=== PATIENT | male | born 1990 | race Caucasian/White ===

== ENCOUNTER 2017-09-19 17:41 | Emergency (ER) | payer SELFPAY ==
--- NOTE | 2017-09-19 19:00 | RAD REPORT ---
EXAM DESCRIPTION: RAD - Ankle Left 3 View - 09/19/2017 6:54 pm CLINICAL HISTORY: Pain and swelling. COMPARISON: None. FINDINGS: Moderate soft tissue swelling is seen along the medial malleolus. No acute fracture or dis location is suspected. IMPRESSION: Moderate medial soft tissue swelling.
--- NOTE | 2017-09-19 19:11 | ER ---
Nurse's Notes [facility] Name: Harley Romero Age: 27 yrs Sex: Male : 1990 Arrival Date: 09/19/2017 Time: 17:43 Bed 18 Private MD: Diagnosis: Contusion of left ankle Presentation: 09/19 17:45 Presenting complaint: Patient states: Left ankle was crushed between pipe and wall aj yesterday morning. Patient is able to ambulate. Transition of care: patient was not received from another setting of care. Onset of symptoms was September 18, 2017. Initial Sepsis Screen: Does the patient meet any 2 criteria? No. Patient's initial sepsis screen is negative. Does the patient have a suspected source of infection? No. Patient's initial sepsis screen is negative. Care prior to arrival: None. 17:45 Method Of Arrival: Ambulatory 17:45 Acuity: SEN 4 Triage Assessment: 17:46 General: Appears in no apparent distress. comfortable, Behavior is calm, cooperative, aj appropriate for age. Pain: Complains of pain in left medial ankle and medial aspect of left foot Pain currently is 6 out of 10 on a pain scale. Neuro: Level of Consciousness is awake, alert, obeys commands, Oriented to person, place, time, situation, Appropriate for age. Respiratory: Airway is patent Respiratory effort is even, unlabored, Respiratory pattern is regular, symmetrical. Derm: Skin is intact, is healthy with good turgor, Skin is pink, warm \T\ dry. normal. Musculoskeletal: Reports pain in left foot, left medial ankle and medial aspect of left foot. Historical: - Allergies: 17:46 No Known Allergies; aj - Home Meds: 17:46 None [Active]; aj - PMHx: 17:46 None; aj - PSHx: 17:46 None; aj - Immunization history:: Adult Immunizations up to date. - Social history:: Smoking status: Patient uses tobacco products, smokes one-half pack cigarettes per day. Screenin:24 Abuse screen: Denies threats or abuse. Denies injuries from another. Nutritional lk1 screening: No deficits noted. Tuberculosis screening: No symptoms or risk factors identified. Fall Risk Total Lala Fall Scale indicates Low Risk Score (25-44 pts). Fall prevention measures have been instituted. Side Rails Up X 2 Placed close to Nursing Station Frequent Obs/Assesments occuring Family Present and informed to notify staff if they need to leave bedside As available Patient and Family Educated on Fall Prevention Program and strategies. Assessment: 18:00 General: Appears in no apparent distress. Behavior is calm, cooperative, appropriate lk1 for age. Pain: Complains of pain in left lateral malleolus, left medial malleolus, medial aspect of left heel and instep of left foot Pain currently is 6 out of 10 on a pain scale. Neuro: Level of Consciousness is awake, alert, obeys commands, Oriented to person, place, time, situation. Cardiovascular: Capillary refill is brisk Patient's skin is warm and dry. Respiratory: Airway is patent Respiratory effort is even, unlabored, Respiratory pattern is regular, symmetrical. GI: No signs and/or symptoms were reported involving the gastrointestinal system. : No signs and/or symptoms were reported regarding the genitourinary system. EENT: No signs and/or symptoms were reported regarding the EENT system. Derm: No signs and/or symptoms reported regarding the dermatologic system. Musculoskeletal: Circulation, motion, and sensation intact. Swelling present in left medial malleolus, medial aspect of left heel and instep of left foot. Vital Signs: 17:46 BP 142 / 76; Pulse 106; Resp 18; Temp 99.0; Pulse Ox 100% on R/A; Weight 81.65 kg; aj Height 5 ft. 7 in. (170.18 cm); Pain 6/10; 18:30 BP 136 / 75; Pulse 96; Resp 16; Pulse Ox 100% on R/A; Pain 5/10; lk1 17:46 Body Mass Index 28.19 (81.65 kg, 170.18 cm) ED Course: 17:43 Patient arrived in ED. rg4 17:46 Triage completed. aj 17:46 Arm band placed on left wrist. Patient placed in an exam room. aj 17:51 Delmar Horne PA is PHCP. cp 17:51 Delamr Noland MD is Attending Physician. cp 18:54 X-ray completed. Portable x-ray completed in exam room. Patient tolerated procedure kc2 well. 18:54 XRAY Ankle LEFT 3 view In Process Unspecified. EDMS 19:06 Farzana Agrawal, AMBER is Primary Nurse. lk1 19:10 Armando German MD is Referral Physician. cp 19:24 Patient has correct armband on for positive identification. Bed in low position. Call lk1 light in reach. Side rails up X 1. Adult w/ patient. 20:03 No provider procedures requiring assistance completed. Patient did not have IV access lk1 during this emergency room visit. Administered Medications: No medications were administered Outcome: 19:11 Discharge ordered by MD. cp 20:03 Discharged to home ambulatory, with family. lk1 20:03 Condition: good 20:03 Discharge instructions given to patient, family, Instructed on discharge instructions, follow up and referral plans. medication usage, safety practices, Demonstrated understanding of instructions, follow-up care, medications, Prescriptions given X 1. 20:03 Patient left the ED. lk1 Signatures: Dispatcher [employer] EDMS Petty Robin, RN RN Delmar Zhao, Farzana Villalpando cp, AMBER RN lk1 Frances Smith2 Soraya Leigh rg4
--- NOTE | 2017-09-19 19:11 | EDPHYS ---
Physician Documentation [facility] Name: Harley Romero Age: 27 yrs Sex: Male : 1990 Arrival Date: 09/19/2017 Time: 17:43 Bed 18 Private MD: ED Physician Delmar Noland HPI: 09/19 18:15 This 27 yrs old Male presents to ER via Ambulatory with complaints of Ankle cp Injury. 18:15 The patient presents with a contusion, pain, that is acute, swelling, tenderness. The cp complaints affect the left medial ankle. Onset: The symptoms/episode began/occurred yesterday. Historical: - Allergies: 17:46 No Known Allergies; aj - Home Meds: 17:46 None [Active]; aj - PMHx: 17:46 None; aj - PSHx: 17:46 None; aj - Immunization history:: Adult Immunizations up to date. - Social history:: Smoking status: Patient uses tobacco products, smokes one-half pack cigarettes per day. ROS: 18:15 Eyes: Negative for injury, pain, redness, and discharge. cp 18:15 Constitutional: Negative for body aches, chills, fever, poor PO intake. 18:15 ENT: Negative for drainage from ear(s), ear pain, sore throat, difficulty swallowing, difficulty handling secretions. 18:15 Cardiovascular: Negative for chest pain, palpitations. 18:15 Respiratory: Negative for cough, shortness of breath, wheezing. 18:15 Abdomen/GI: Negative for abdominal pain, nausea, vomiting, and diarrhea. 18:15 Back: Negative for pain at rest, pain with movement, radiated pain. 18:15 : Negative for urinary symptoms. 18:15 MS/extremity: Positive for contusion, ecchymosis, pain, swelling, tenderness, of the left medial ankle. 18:15 Skin: Negative for cellulitis, rash. 18:15 Neuro: Negative for headache, numbness. 18:15 All other systems are negative. Exam: 18:22 Constitutional: The patient appears in no acute distress, alert, awake, well developed, cp well nourished. 18:22 Head/Face: Normocephalic, atraumatic. cp 18:22 Eyes: Periorbital structures: appear normal, Conjunctiva: normal, no exudate, no injection, Lids and lashes: appear normal, bilaterally. 18:22 ENT: External ear(s): are unremarkable, Nose: is normal, Mouth: is normal. 18:22 Neck: ROM/movement: is normal, is supple, without pain, no range of motions limitations, no nuchal rigidity. 18:22 Chest/axilla: Inspection: normal. 18:22 Cardiovascular: Rate: tachycardic, Rhythm: regular, Pulses: Pulses are 2+ in left dorsalis pedis artery. 18:22 Respiratory: the patient does not display signs of respiratory distress, Respirations: normal, no use of accessory muscles, no retractions, no splinting, no tachypnea. 18:22 Abdomen/GI: Exam negative for discomfort, distension, guarding, Inspection: abdomen appears normal. 18:22 Musculoskeletal/extremity: Extremities: grossly normal except: noted in the left medial ankle: ecchymosis, pain, swelling, tenderness, Sensation intact. Vital Signs: 17:46 BP 142 / 76; Pulse 106; Resp 18; Temp 99.0; Pulse Ox 100% on R/A; Weight 81.65 kg; aj Height 5 ft. 7 in. (170.18 cm); Pain 6/10; 18:30 BP 136 / 75; Pulse 96; Resp 16; Pulse Ox 100% on R/A; Pain 5/10; lk1 17:46 Body Mass Index 28.19 (81.65 kg, 170.18 cm) aj MDM: 17:53 Patient medically screened. cp 19:00 Differential diagnosis: fracture, contusion. cp 19:08 Data reviewed: vital signs, nurses notes, radiologic studies, plain films, and as a cp result, I will discharge patient. 19:10 Counseling: I had a detailed discussion with the patient and/or guardian regarding: the cp historical points, exam findings, and any diagnostic results supporting the discharge/admit diagnosis, radiology results, the need for outpatient follow up, a family practitioner, to return to the emergency department if symptoms worsen or persist or if there are any questions or concerns that arise at home. 19:10 Response to treatment: the patient's symptoms have mildly improved after treatment, and cp as a result, I will discharge patient. 09/19 18:09 Order name: XRAY Ankle LEFT 3 view; Complete Time: 19:02 cp 09/19 19:02 Interpretation: Report reviewed. cp Administered Medications: No medications were administered Disposition: 09/19/17 19:11 Discharged to Home. Impression: Contusion of left ankle. - Condition is Stable. - Discharge Instructions: Contusion. - Prescriptions for Naprosyn 500 mg Oral Tablet - take 1 tablet by ORAL route 2 times per day take with food; 20 tablet. - Medication Reconciliation Form, Thank You Letter, Antibiotic Education, Prescription Opioid Use form. - Follow up: Armando German MD; When: 5 - 6 days; Reason: Recheck today's complaints. - Problem is new. - Symptoms have improved. Addendum: 09/22/2017 07:24 Co-signature as Attending Physician, Delmar oNland MD I agree with the assessment and c tran plan of care. Signatures: Dispatcher [employer] EDPetty Boyce, RN Delmar Huang MD MD cha Page, Corey, PA PA cp Farzana Agrawal, RN RN lk1 Corrections: (The following items were deleted from the chart) 09/19 20:02 19:05 Walking boot ordered. cp lk1 20:02 19:05 Crutches ordered. cp lk1
== END 2017-09-19 20:03 | disposition home or self-care (01) ==
LOC: ER 17:41
DX: S90.02XA Contusion of left ankle, initial encounter (principal); F17.210 Nicotine dependence, cigarettes, uncomplicated; W23.0XXA Caught, crushed, jammed, or pinched between moving objects, initial encounter; Y93.9 Activity, unspecified; Y92.89 Other specified places as the place of occurrence of the external cause
CPT/HCPCS: 99283